=== PATIENT | female | born 1985 | race Caucasian/White ===

== ENCOUNTER 2019-01-26 19:48 | Emergency (ER) | payer BC ==
[2019-01-26] MEDS ORDERED: Ketorolac 60 MG/2 ML SDV IM ONE (20:13)
--- NOTE | 2019-01-26 20:17 | EDM.PDOC ---
ED HPI GENERAL MEDICAL PROBLEM - General Chief Complaint: Upper Extremity Injury/Pain Stated Complaint: POSSIBLE DISLOCATED SHOULDER Time Seen by Provider: 01/26/19 20:06 - History of Present Illness INITIAL COMMENTS - FREE TEXT/NARRATIVE: HISTORY AND PHYSICAL: History of present illness: Patient is a 33-year-old healthy female who presents after falling down some stairs going to her basement and injuring her left shoulder. She is not sure how she fell on it but she complains of pain at her left shoulder and shooting muscle spasm of her left neck. She has no distal humerus elbow forearm hand or wrist pain and she is right-hand dominant. She did not pass out or black out and has no neck or back pain in the midline. Prior to these events she was in her usual state of good health without any systemic complaints. She says she thinks that her shoulder was out and that she felt a big pop and then she had a spasm in her neck muscles. She has no neurosensory changes or weakness in the distal arm. Her pain is localized at the anterior shoulder and the left trapezius area. Review of systems: As per history of present illness and below otherwise all systems reviewed and negative. Past medical history: As per history of present illness and as reviewed below otherwise noncontributory. Surgical history: As per history of present illness and as reviewed below otherwise noncontributory. Social history: No reported history of drug or alcohol abuse. Family history: As per history of present illness and as reviewed below otherwise noncontributory. Physical exam: General: Well-developed well-nourished female who is nontoxic and vital signs are noted by me. HEENT: Atraumatic, normocephalic,negative for conjunctival pallor or scleral icterus, mucous membranes moist, throat clear, neck supple, nontender, trachea midline. There are no midline step-offs tenderness defects of the cervical spine Lungs: Clear to auscultation, breath sounds equal bilaterally, chest nontender. Heart: S1S2, regular rate and rhythm no overt murmurs Abdomen: Soft, nondistended, nontender. NABS Pelvis: Stable nontender. No lateral hip tenderness Genitourinary: Deferred. Rectal: Deferred. Extremities: Atraumatic, full range of motion of all extremities with the exception of the left shoulder where there is tenderness with palpation of the anterior aspect of the shoulder or the proximal humerus and the distal clavicle without ecchymosis or gross soft tissue swelling. There is no gross joint effusion appreciated. The distal humerus elbow forearm wrist and hand are intact without tenderness defects or deformities and neurovascular is intact. The patient does not want to range of motion at the shoulder due to discomfort. There is no visible dislocation or AC step-offs appreciated on my evaluation and there is no scapular tenderness. There is no rib tenderness in this region laterally or posteriorly. There is spasm and tenderness with palpation of the left trapezius muscle.. Neurovascular unremarkable. Neuro: Awake, alert, oriented. Cranial nerves II through XII unremarkable. Cerebellum unremarkable. Motor and sensory unremarkable throughout. Exam nonfocal. Back: There are no midline step-offs tenderness defects of the thoracic or lumbar spine no posterior rib or posterior pelvis tenderness and no soft tissue injuries are appreciated Diagnostics: X-ray left shoulder Therapeutics: toradol sling Impression: Left shoulder injury Definitive disposition and diagnosis as appropriate pending reevaluation and review of above. Left Shoulder Pain Score (Numeric/FACES): 7 - Related Data Allergies Allergy/AdvReac Type Severity Reaction Status Date / Time codeine Allergy Tachycardia Verified 01/26/19 20:03 Home Meds: Home Meds . [No Known Home Meds] 01/26/19 [History] Past Medical History [employer] History: Reports: - Infectious Disease History Infectious Disease History: Reports: Chicken Pox - Past Surgical History GI Surgical History: Reports: Appendectomy Social & Family History - Family History Family Medical History: Noncontributory - Tobacco Use Smoking Status *Q: Never Smoker Second Hand Smoke Exposure: No - Caffeine Use Caffeine Use: Reports: Coffee - Recreational Drug Use Recreational Drug Use: No Review of Systems - Review of Systems Review Of Systems: ROS reveals no pertinent complaints other than HPI. ED EXAM, GENERAL - Physical Exam Exam: See Below (See dictation) Course - Vital Signs Last Recorded V/S: Last Vital Signs Temp 36.4 C 01/26/19 20:03 Pulse 91 01/26/19 20:03 Resp 16 01/26/19 20:03 BP 125/79 01/26/19 20:03 Pulse Ox 97 01/26/19 20:03 - Orders/Labs/Meds Meds: Medications Discontinued Medications Generic Name Dose Route Start Last Admin Trade Name [place] PRN Reason Stop Dose Admin Ketorolac Tromethamine 60 mg 01/26/19 20:13 01/26/19 20:22 Toradol IM 01/26/19 20:14 60 mg ONETIME ONE Administration Departure - Departure Time of Disposition: 20:55 Disposition: Home, Self-Care 01 Condition: Good Clinical Impression: Injury of left shoulder Qualifiers: Encounter type: initial encounter Qualified Code(s): S49.92XA - Unspecified injury of left shoulder and upper arm, initial encounter - Discharge Information Referrals: PCP,None [Primary Care Provider] - Forms: ED Department Discharge Additional Instructions: The following information is given to patients seen in the emergency department who are being discharged to home. This information is to outline your options for follow-up care. We provide all patients seen in our emergency department with a follow-up referral. The need for follow-up, as well as the timing and circumstances, are variable depending upon the specifics of your emergency department visit. If you don't have a primary care physician on staff, we will provide you with a referral. We always advise you to contact your personal physician following an emergency department visit to inform them of the circumstance of the visit and for follow-up with them and/or the need for any referrals to a consulting specialist. The emergency department will also refer you to a specialist when appropriate. This referral assures that you have the opportunity for followup care with a specialist. All of these measure are taken in an effort to provide you with optimal care, which includes your followup. Under all circumstances we always encourage you to contact your private physician who remains a resource for coordinating your care. When calling for followup care, please make the office aware that this follow-up is from your recent emergency room visit. If for any reason you are refused follow-up, please contact the [facility] emergency department at and ask to speak to the emergency department charge nurse. [facility] Professional [facility] [address] [place] [address], [address] [place] [address] Ice to areas of discomfort for the next 24 hours and then continue with ice on the front part of the shoulder and you may switch to heat on the neck muscles area and use [id number] ibuprofen or Aleve for pain management and please call and schedule a follow-up appointment in our ortho clinic for further care and evaluation of this problem. Return to ER as needed and as discussed. Wear sling for the next 3 days or until you're followed up by orthopedics.
--- NOTE | 2019-01-26 20:42 | CR ---
Indication: Fell downstairs. Technique: Three views of the left shoulder were obtained. Comparison: None Findings: The humeral head is seated within the glenoid. No fracture or subluxation is identified. The joint spaces are well maintained. Impression: No acute fracture. Dictated by Juliann Welch MD @ Jan 26 2019 8:39PM Signed by Dr. Juliann Welch @ Jan 26 2019 8:39PM
== END 2019-01-26 21:05 | disposition home or self-care (01) ==
LOC: MW.ED 19:48
DX: S49.92XA Unspecified injury of left shoulder and upper arm, initial encounter (principal); Z88.5 Allergy status to narcotic agent; W10.8XXA Fall (on) (from) other stairs and steps, initial encounter
CPT/HCPCS: 73030; 96372; 99283; J1885

== ENCOUNTER 2023-07-16 22:57 | Emergency (ER) | payer BC ==
[2023-07-16] MEDS: Sodium Chloride 0.9% 1,000 ML IV ONE (23:17)
[2023-07-16] MEDS: Meclizine 25 MG Tab PO ONE (23:17)
[2023-07-16 23:36] LABS: BASOPHILS ABSOLUTE AUTO 0.05 K/uL (0.00-0.20); BASOPHILS PERCENT AUTO 0.3 % (0.0-1.0); EOSINOPHILS ABSOLUTE AUTO 0.26 K/uL (0.00-0.45); EOSINOPHILS PERCENT AUTO 1.8 % (0.0-6.0); HEMOGLOBIN 15.5 g/dL (12.0-16.0); IMMATURE GRAN ABSOLUTE AUTO 0.05 K/uL (0.00-0.05); IMMATURE GRAN PERCENT AUTO 0.3 % (0.0-0.4); LYMPHOCYTES ABSOLUTE AUTO 2.56 K/uL (1.00-4.80); LYMPHOCYTES PERCENT AUTO 17.5 % (24.0-44.0); MEAN CORPUSCULAR HEMOGLOBIN 31.3 pg (28.0-32.0); MEAN CORPUSCULAR HGB CONC 35.2 g/dL (32.0-36.0); MEAN CORPUSCULAR VOLUME 88.7 fL (83.0-99.0); MEAN PLATELET VOLUME 10.9 fL (9.4-12.3); MONOCYTES ABSOLUTE AUTO 0.94 K/uL (0.00-0.80); MONOCYTES PERCENT AUTO 6.4 % (0.0-8.0); NEUTROPHILS ABSOLUTE AUTO 10.73 K/uL (1.80-7.70); NEUTROPHILS PERCENT AUTO 73.7 % (41.0-71.0); PLATELET COUNT,PLT 279 K/uL (150-400); RED BLOOD CELL COUNT 4.96 M/uL (4.10-5.30); WHITE BLOOD CELL COUNT,WBC 14.59 K/uL (3.9-11.3)
[2023-07-16 23:41] LABS: APPEARANCE,URINE CLEAR; BILIRUBIN,URINE NEGATIVE (NEGATIVE); COLOR,URINE YELLOW; GLUCOSE,URINE NEGATIVE (NEGATIVE); KETONES,URINE NEGATIVE (NEGATIVE); LEUKOCYTE ESTERASE,URINE NEGATIVE (NEGATIVE); NITRITE,URINE NEGATIVE (NEGATIVE); OCCULT BLOOD,URINE NEGATIVE (NEGATIVE); PROTEIN,URINE NEGATIVE (NEGATIVE); UROBILINOGEN,URINE 0.2 EU/dL (<2.0)
[2023-07-16 23:59] LABS: CORONAVIRUS COVID-19 NAA NEGATIVE (NEGATIVE); INFLUENZA A NAA NEGATIVE (NEGATIVE); INFLUENZA B NAA NEGATIVE (NEGATIVE)
[2023-07-17 00:18] LABS: A/G RATIO 0.9 (0.9-1.6); ALANINE AMINOTRANSFERASE,ALT 32 IU/L (14-63); ALBUMIN 3.5 g/dL (3.4-5.0); ALKALINE PHOSPHATASE 42 U/L (46-116); ASPARTATE AMNIOTRANSFERASE,AST 24 IU/L (15-37); BILIRUBIN TOTAL 0.4 mg/dL (0.2-1.0); BLOOD UREA NITROGEN,BUN 12 mg/dL (7.0-18.0); C-REACTIVE PROTEIN 0.21 mg/dL (<0.3); CALCIUM 8.9 mg/dL (8.5-10.1); CARBON DIOXIDE,CO2 25.9 mmol/L (21.0-32.0); CHLORIDE,CL 104 mmol/L (98-107); CREATININE 0.9 mg/dL (0.6-1.0); EST CRCL DRUG DOSING (CG) 63.33 mL/min; GLUCOSE RANDOM 97 mg/dL (74-106); LIPASE 62 U/L (16-77); MAGNESIUM 1.8 mg/dL (1.8-2.4); POTASSIUM,K 3.4 mmol/L (3.5-5.1); PROTEIN TOTAL,TP 7.4 g/dL (6.4-8.2); SODIUM,NA 141 mmol/L (136-145); TSH ULTRASENSITIVE 2.93 uIU/mL (0.36-3.74)
[2023-07-17 00:24] LABS: ESTIMATED GFR 83 mL/min (>60)
[2023-07-17] MEDS: Sodium Chloride 0.9% 1,000 ML IV ONE (00:50)
[2023-07-17] MEDS: Ondansetron 4 MG/2 ML SDV IVPUSH ONE (00:50)
== END 2023-07-17 02:14 | disposition home or self-care (01) ==
LOC: MW.ED 22:57
DX: K52.9 Noninfective gastroenteritis and colitis, unspecified (principal); Z88.5 Allergy status to narcotic agent; Z90.49 Acquired absence of other specified parts of digestive tract; Z79.899 Other long term (current) drug therapy
CPT/HCPCS: 0240U; 36415; 70450; 80053; 81003; 83690; 83735; 84443; 84484; 84703; 85025; 86140; 93005; 96361; 96374; 99284; A9270; J2405; J7030; 93010

== ENCOUNTER 2024-08-20 06:28 | Day surgery (SDC) | payer BC ==
[2024-08-20] MEDS: Lactated Ringers 1,000 ML IV SCH (06:26)
[2024-08-20] MEDS ORDERED: Bupivacaine 0.5% 30 ML SDV ONE (07:11)
[2024-08-20] MEDS ORDERED: Lidocaine 1% 20 ML MDV ONE (07:11)
[2024-08-20] MEDS ORDERED: Metoclopramide 10 MG/2 ML SDV IVPUSH PRN (07:18)
[2024-08-20] MEDS ORDERED: Naloxone 0.4 MG/ML SDV IVPUSH PRN (07:18)
[2024-08-20] MEDS ORDERED: fentaNYL 50 MCG/ML SDV IVPUSH PRN (07:18)
[2024-08-20] MEDS ORDERED: Ondansetron 4 MG/2 ML SDV IVPUSH PRN (07:18)
[2024-08-20] MEDS ORDERED: Phenylephrine HCl In 0.9% NaCl 1 MG/10 ML Syringe IVPUSH PRN (07:18)
[2024-08-20] MEDS ORDERED: HYDROmorphone 1 MG/ML Syringe IVPUSH PRN (07:18)
[2024-08-20] MEDS ORDERED: Albuterol 0.083% 2.5 MG/3 ML Neb Soln NEB PRN (07:18)
[2024-08-20] MEDS ORDERED: Morphine 2 MG/ML SYRINGE IVPUSH PRN (07:18)
[2024-08-20] MEDS ORDERED: Propofol 200 MG/20 ML SDV ONE (07:29)
[2024-08-20] MEDS ORDERED: Midazolam 1 MG/ML 2 ML SDV ONE (07:30)
[2024-08-20] MEDS ORDERED: fentaNYL 100 MCG/2 ML SDV ONE (07:30)
[2024-08-20] MEDS ORDERED: Lidocaine 1% 5 ML VIAL ONE (07:30)
[2024-08-20] MEDS ORDERED: ceFAZolin 2 GM Vial ONE (08:01)
[2024-08-20] MEDS ORDERED: Dexamethasone 4 MG/ML 5 ML MDV ONE (08:04)
[2024-08-20] MEDS ORDERED: Ondansetron 4 MG/2 ML SDV ONE (08:04)
[2024-08-20] MEDS ORDERED: Phenylephrine HCl In 0.9% NaCl 1 MG/10 ML Syringe ONE (08:05)
[2024-08-20] MEDS ORDERED: Ketorolac 30 MG/ML SDV ONE (08:21)
== END 2024-08-20 09:25 | disposition home or self-care (01) ==
LOC: MW.SDS 06:28
PROVIDERS: ATTEND Surgery
DX: D17.5 Benign lipomatous neoplasm of intra-abdominal organs (principal); Z88.5 Allergy status to narcotic agent; Z87.891 Personal history of nicotine dependence; Z79.899 Other long term (current) drug therapy
CPT/HCPCS: 22903; 81025; J0665; J0690; J1100; J1885; J2003; J2250; J2371; J2405; J2704; J3010; J7120; 00800; J3490